=== PATIENT | female | born 1940 ===

== ENCOUNTER 2023-07-04 13:06 | Outpatient (AMB) | payer MEDICARE, SELFPAY ==
--- NOTE | 2023-07-04 13:21 | A.SPINEOV_ITS ---
Intake Visit Reasons: low back pain Intake Note: Ms. Rodriguez is here today c/o low back pain. Forensics Analyst Required: No Assessment & Plan Assessment & Plan (1) Lumbar stenosis: Code(s): M48.061 - Spinal stenosis, lumbar region without neurogenic claudication Category: Medical (2) Back pain: Code(s): M54.9 - Dorsalgia, unspecified Category: Medical Plan Dear Dr Andres, Mrs Rodriguez came to see us today as a 2nd opinion regarding her lumbar stenosis and scoliosis. She is a very nice 83-year-old woman who has been dealing with 2 years of progressive pain in her legs, right greater than left. She does not report any back pain. The pain starts in her right hip area radiates down the front of her thigh, the back of her right thigh and into her lateral tibial region and into her ankle. She also gets pain in her left buttock going down into her left posterior thigh as well. The pain is aggravated with standing walking and goes away when she sits. She has been seen at [facility] and undergone numerous injections which at times have worked and at other times have not. She has taken ibuprofen and tramadol to try to help with the pain. She is tried activity modifications, physical therapy etc.. She is getting to the point now where she can barely leave the house. She is frustrated with her quality of life. She did see Dr. Good at [facility], and it sounds like the conversation was not all that fruitful. From what it sounds like, it seems as though he was going to offer her possibly a spinal fusion surgery or something similar as she describes it. She did not get a good feeling about the conversation and the expectations after surgery so she sought out a 2nd opinion after seeing us in a newspaper ad. PMH: She is diabetic, she does not know what her A1c is but believes it to be reasonably good as her blood sugars are normally not very high. History of hypertension. She has history of breast cancer which was diagnosed last year, from what it sounds like she had a lumpectomy and the option to pursue chemo and radiation thereafter but she chose not to do these things and is just being followed clinically with the exception of taking oral anastrozole. Upon questioning, it sounds like it was localized and they did not tell her what affect her overall mortality, survive ability etc.. She has a history of previous back surgery 40 years ago done at a hospital that is now closed. She had some kind of bladder surgery but the details about this are not clear as well. Denies any history of heart attacks, strokes, kidney disorders, bleeding disorders, lung problems etc.. Social hx: She does not smoke, drink use any recreational drugs Medications: Metformin, anastrozole, ibuprofen, pravastatin, verapamil and tramadol Allergies: Demerol Physical exam: Awake alert oriented no acute distress, she has full strength of bilateral upper and lower extremities with normal reflexes in the upper extremities, no Donnelly's sign, she has absent reflexes bilaterally at the patella and the Achilles. Imaging review: She has a lumbar MRI done at [facility] in February 2023 showing transitional anatomy, advanced degenerative disc disease with scoliosis, right L3 foraminal stenosis, severe stenosis at L4-5 with bilateral L4 foraminal stenosis right greater than left. It looks as though she may have had surgery at the L4-5 space previously but there is limited interpretation secondary to lack of contrast. Impression: 83-year-old female presents to the office today for 2nd opinion about her lumbar stenosis and scoliosis as outlined above. The main complaint is bilateral leg pain, right greater than left. She does not have any back pain in the symptoms are strictly claudicating in nature. She has severe stenosis at L4-5. It appears as though she may have had surgery there in the past. The MRI is noncontrast. She also appears to have foraminal stenosis bilaterally right greater than left as well as foraminal stenosis at the right L3 foramen. I did standing x-rays and this shows a significant levoscoliosis, with the apex at L3- 4 and L4-5. I was able show the MRI to Dr. Peña, he has not seen the x- rays, but was willing to consider an oblique lumbar interbody fusion. This would be contingent upon her understanding that she does have some osteopenia/osteoporosis at her age and there could be risk of hardware failure and bone fracture with placement of the cages, but that the best chance she has would be through the oblique approach because we can get a larger cage sitting on the apophyseal ring and cortical bone. I am going to order a CT scan of the lumbar spine to better evaluate her bony anatomy, and her bone quality and I will have her follow up in the office with Dr. Peña to have another discussion. At the time of this visit we did spend an extensive amount of time discussing risks, benefits and recovery of surgery. I would expect she would need rehabilitation afterwards for number of weeks. Thank you for allowing us to care for your patient. The total time spent with this visit with this patient was 75 minutes reviewing history, physical exam, lumbar imaging review, and implementation of treatment plan or further diagnostic testing Ar Peña MD,PhD [facility] Orders: Orders XR lumbar spine 4V min Today M48.061 - Spinal stenosis, lumbar region without neurogenic claudication, M54.9 - Dorsalgia, unspecified CT lumbar spine wo IV con Today M54.9 - Dorsalgia, unspecified
== END 2023-07-04 14:36 | disposition home or self-care (01) ==
PROVIDERS: PCP Family Medicine; Visit Provider Physician Assistant
DX: M48.061 Spinal stenosis, lumbar region without neurogenic claudication (principal); M54.9 Dorsalgia, unspecified
CPT/HCPCS: 99205

== ENCOUNTER 2023-07-04 13:06 | Outpatient (REF) | payer MEDICARE, SELFPAY ==
--- NOTE | ~2023-07-04 | XR_ITS ---
EXAMINATION: XR LUMBOSACRAL SPINE WITH FLEXION AND EXTENSION CLINICAL INFORMATION: Dorsalgia, unspecified COMPARISON: None available. TECHNIQUE: AP, lateral neutral and lateral flexion and extension standing views of the lumbar spine. FINDINGS: There is rotatory curve of the lumbar spine, convex left. There is slight left lateral translation of L4 with respect to L5. There is right lateral compression of L3 and L4. There 5 nonrib-bearing lumbar-type vertebral bodies. There is degenerative disc disease at all lumbar levels. There is marked degenerative facet joint disease from L3 through S1. There is straightening of the usual lumbar lordosis which can be seen with muscle spasm. There is mild retrolisthesis of L2 with respect to L3 and L5 respect to L4. These are unchanged with flexion and extension. The patient demonstrates very limited flexion and extension. There is calcification of the abdominal aorta without evidence of aneurysmal dilatation. There is mild degenerative change of the inferior aspect of the left sacroiliac joint. XR/XR lumbar spine 4V min IMPRESSION: 1. Rotatory curve of the lumbar spine, convex left. 2. Multilevel degenerative disc disease and degenerative facet joint disease. 3. Multilevel retrolisthesis. 4. Muscle spasm. 5. Right lateral compression of L3 and L4. 6. No significant change in alignment with flexion and extension.
== END 2023-07-04 13:07 | disposition home or self-care (01) ==
LOC: HO.HOSX 13:06
PROVIDERS: PCP Family Medicine; Visit Provider Physician Assistant
DX: M48.061 Spinal stenosis, lumbar region without neurogenic claudication (principal)
CPT/HCPCS: 72110; 99202

== ENCOUNTER 2023-08-16 14:40 | Outpatient (AMB) | payer MEDICARE, SELFPAY ==
--- NOTE | 2023-08-16 15:08 | HO.SPINEOV ---
Intake Visit Reasons: CT follow up Intake Note: Mrs. Rodriguez is here to discuss the results of her CT Scan. Olive Knocker Required: No Assessment & Plan Assessment & Plan (1) Lumbar stenosis: Code(s): M48.061 - Spinal stenosis, lumbar region without neurogenic claudication Category: Medical Plan Dear Dr Andres, Mrs Rodriguez is back in the office today to review her CT scan with Dr. Peña. We previously saw her for bilateral leg pain, right greater than left in the setting of severe stenosis at L4-5. Upright x-ray showed a severe levoscoliosis for which a simple decompression would not be adequate.. Her CT scan done at [facility] shows that she has very porous bone consistent with osteoporosis and unfortunately because of the quality of her bone, we can not provide surgery as the instrumentation needed to fix the scoliosis would likely not hold. This puts her in a precarious predicament. She is in chronic pain and her quality of life is suffering significantly but she is not a surgical candidate. It is not unreasonable to consider giving her a narcotic prescription. She is low risk for addiction, and has a legitimate reason have severe pain. At her age she is unlikely to abuse the medication. We have told her to get in touch with your office to see if she would be willing to consider this to help make her life more tolerable. Total amount of time spent in this visit was 20 minutes in discussion of symptoms, lumbar CT and MRI done at [facility] imaging results and subsequent plan of care Ar Peña MD,PhD [facility] Coding Level of Care Code Est Pt Level 3 (33055) Diagnoses Lumbar stenosis M48.061
== END 2023-08-16 15:36 | disposition home or self-care (01) ==
PROVIDERS: PCP Family Medicine; Visit Provider Physician Assistant
DX: M48.061 Spinal stenosis, lumbar region without neurogenic claudication (principal)
CPT/HCPCS: 99213

== ENCOUNTER → 2023-08-16 14:40 | Outpatient (BNVA) | payer MEDICARE, SELFPAY | PROVIDERS: PCP Family Medicine; Visit Provider Neurological Surgery | DX: M48.061 Spinal stenosis, lumbar region without neurogenic claudication (principal) | CPT/HCPCS: 99212 ==